=== PATIENT | female | born 1970 | race Caucasian/White ===

== ENCOUNTER 2023-10-13 06:33 | Day surgery (SDC) | payer OTHER ==
[~2023-10-13] VITALS: Ht 147.3 cm; Wt 65.3 kg
[2023-10-13] MEDS ORDERED: MIDAZOLAM 5 MG/5 ML VIAL ONE (07:30)
[2023-10-13] MEDS ORDERED: diphenhydrAMINE 50 MG/ML VIAL ONE (07:30)
[2023-10-13] MEDS ORDERED: fentaNYL citrate 0.05 MG/ML VIAL ONE (07:30)
[2023-10-13] MEDS ORDERED: LIDOCAINE 2% 100 MG/5 ML UJET TP ONE ×2 (07:31→09:25)
[2023-10-13] MEDS ORDERED: MIDAZOLAM 2 MG/2 ML VIAL IVP ONE (09:25)
[2023-10-13] MEDS ORDERED: fentaNYL citrate 0.05 MG/ML VIAL IVP ONE (09:25)
== END 2023-10-13 09:45 | disposition home or self-care (01) ==
LOC: MDS 06:33 → MMU 06:35 → MDS 09:45
PROVIDERS: ATTEND Internal Medicine Gastroenterology
DX: Z12.11 Encounter for screening for malignant neoplasm of colon (principal); I10 Essential (primary) hypertension; E78.00 Pure hypercholesterolemia, unspecified; F41.9 Anxiety disorder, unspecified; G43.909 Migraine, unspecified, not intractable, without status migrainosus; E05.90 Thyrotoxicosis, unspecified without thyrotoxic crisis or storm; K21.9 Gastro-esophageal reflux disease without esophagitis; Z85.41 Personal history of malignant neoplasm of cervix uteri; Z80.0 Family history of malignant neoplasm of digestive organs; Z88.0 Allergy status to penicillin; Z88.8 Allergy status to other drugs, medicaments and biological substances; Z79.82 Long term (current) use of aspirin; Z79.899 Other long term (current) drug therapy
CPT/HCPCS: 45378; J2250; J3010; J1200